=== PATIENT | female | born 1960 ===

== ENCOUNTER 2016-10-08 11:34 | Day surgery (SDC) | payer MEDICARE, OTHER ==
[2016-10-05 08:59] VITALS: BMI 29.0
[2016-10-08] MEDS ORDERED: Propofol 10 mg/ml Inj (20 ML) ONE ×2 (14:15→14:51)
[2016-10-08] MEDS ORDERED: Lidocaine 2% Inj (20ml) ONE (14:16)
[2016-10-08] MEDS ORDERED: Midazolam 2 MG/2 ML VIAL ONE ×2 (14:16→14:41)
[2016-10-08] MEDS ORDERED: Lidocaine 2% Jelly (30 ml) ONE (14:37)
[2016-10-08] MEDS ORDERED: Lactated Ringer's 1,000 ML IV SCH (15:12)
[2016-10-08 16:00] VITALS: TEMP 98.3; O2SAT 98
[2016-10-08 16:02] VITALS: PULSE 63; RESP 18
[2016-10-08 16:35] VITALS: BP 116/67
== END 2016-10-08 17:30 | disposition home or self-care (01) ==
LOC: ENDO 11:34
PROVIDERS: ATTEND Internal Medicine Gastroenterology
DX: C21.8 Malignant neoplasm of overlapping sites of rectum, anus and anal canal (principal); Z92.21 Personal history of antineoplastic chemotherapy; Z92.3 Personal history of irradiation
CPT/HCPCS: 43231; 45330; J2250; J2704; J3010; J7040; J7120

== ENCOUNTER 2017-04-06 08:35 | Emergency (ER) | payer MEDICAID, OTHER ==
[2017-04-06 08:35] VITALS: BMI 28.8
--- NOTE | 2017-04-06 09:35 | ED PDOC ---
Arrival/HPI - General Chief Complaint: GI Problem Time Seen by Provider: 04/06/17 09:10 Historian: Patient - History of Present Illness Narrative History of Present Illness (Text): 04/06/17 09:31 56yo female with PMHx of rectal CA s/p rectal resection present to ED for pain medication. States she still have pain on the surgical incision site that was done in December. states her PMD is currently on vacation and she came to ED for the refill of her oxycodone medication. she denies any current bleeding, fever, redness, swelling, nausea, vomiting, any other complaint. Past Medical History - Provider Review Nursing Documentation Reviewed: Yes - Infectious Disease Hx of Infectious Diseases: None - Tetanus Immunization Tetanus Immunization: Unknown - Reproductive Menopause: Yes - Past Medical History Past Medical History: No Previous - Cardiac Hx Pacemaker: No - Pulmonary Hx Asthma: Yes - Neurological Hx Neurological Disorder: No - HEENT Hx HEENT Disorder: No - Renal Hx Renal Disorder: No - Endocrine/Metabolic Hx Endocrine Disorders: Yes Hx Diabetes Mellitus Type 2: Yes - Hematological/Oncological Hx Blood Transfusions: No - Integumentary Hx Dermatological Disorder: No - Musculoskeletal/Rheumatological Hx Musculoskeletal Disorders: Yes - Gastrointestinal Hx Gastrointestinal Disorders: No - Genitourinary/Gynecological Hx Genitourinary Disorders: No - Psychiatric Hx Emotional Abuse: No Hx Physical Abuse: No Hx Substance Use: No - Past Surgical History Past Surgical History: No Previous - Surgical History Other/Comment: colon surgery, colon ca - Anesthesia Hx Anesthesia Reactions: No Hx Malignant Hyperthermia: No - Suicidal Assessment Feels Threatened In Home Enviroment: No Family/Social History - Physician Review Nursing Documentation Reviewed: Yes Family/Social History: Unknown Family HX Smoking Status: Never Smoked Hx Alcohol Use: No Hx Substance Use: No Hx Substance Use Treatment: No Allergies/Home Meds Allergies/Adverse Reactions: Allergies No Known Allergies Allergy (Verified 10/19/15 16:35) Home Medications: Home Meds Medication Instructions Recorded Confirmed oxyCODONE/Acetaminophen [Percocet 1 tab PO Q6 PRN 10/05/16 04/06/17 5/325 mg Tab] Review of Systems - Physician Review All systems were reviewed & negative as marked: Yes - Review of Systems Constitutional: Normal Eyes: Normal ENT: Normal Respiratory: Normal Cardiovascular: Normal Gastrointestinal: Normal, Other (Rectal pain) Genitourinary Female: Normal Musculoskeletal: Normal Skin: Normal Neurological: Normal Endocrine: Normal Hemo/Lymphatic: Normal Psychiatric: Normal Physical Exam Vital Signs Reviewed: Yes Vital Signs Temp Pulse Resp BP Pulse Ox 04/06/17 10:09 98.0 F 78 17 141/66 98 04/06/17 08:53 98.1 F 88 16 124/76 99 Temperature: Afebrile Blood Pressure: Normal Pulse: Regular Respiratory Rate: Normal Appearance: Positive for: Well-Appearing, Non-Toxic, Comfortable Pain Distress: None Mental Status: Positive for: Alert and Oriented X 3 - Systems Exam Head: Present: Atraumatic, Normocephalic Pupils: Present: PERRL Extroacular Muscles: Present: EOMI Conjunctiva: Present: Normal Mouth: Present: Moist Mucous Membranes Neck: Present: Normal Range of Motion Respiratory/Chest: Present: Clear to Auscultation, Good Air Exchange. No: Respiratory Distress, Accessory Muscle Use Cardiovascular: Present: Regular Rate and Rhythm, Normal S1, S2. No: Murmurs Abdomen: Present: Normal Bowel Sounds. No: Tenderness, Distention, Peritoneal Signs Back: Present: Normal Inspection Upper Extremity: Present: Normal Inspection. No: Cyanosis, Edema Lower Extremity: Present: Normal Inspection. No: Edema Neurological: Present: GCS=15, CN II-XII Intact, Speech Normal Skin: Present: Warm, Dry, Normal Color. No: Rashes Psychiatric: Present: Alert, Oriented x 3, Normal Insight, Normal Concentration Medical Decision Making ED Course and Treatment: 04/06/17 19:29 PT was not in any distress in ED. she was noted to be ambulatory, drinking tea in ED. She was DC home with #10tabs of Percocet. Advised strongly to f/u with her PMD for rx of her opiates. - Medication Orders Current Medication Orders: Discontinued Medications Oxycodone/Acetaminophen (Percocet 5/325 Mg Tab) 1 tab PO STAT STA Stop: 04/06/17 10:19 Last Admin: 04/06/17 10:31 Dose: 1 tab MAR Pain Assessment Document 04/06/17 10:31 HI (Rec: 04/06/17 10:31 KS [id number]) Pain Reassessment Is this a pain reassessment? No Presence of Pain Presence of Pain Yes Disposition/Present on Arrival - Present on Arrival Any Indicators Present on Arrival: No History of DVT/PE: No History of Uncontrolled Diabetes: No Urinary Catheter: No History of Decub. Ulcer: No History Surgical Site Infection Following: None - Disposition Have Diagnosis and Disposition been Completed?: Yes Diagnosis: Rectal pain Disposition: HOME/ ROUTINE Disposition Time: 09:35 Patient Plan: Discharge Condition: STABLE Discharge Instructions (ExitCare): Rectal Pain (ED) Additional Instructions: Follow up with your Doctor Return to ED for any new symptoms Prescriptions: oxyCODONE/Acetaminophen [Percocet 5/325 mg Tab] 1 ea PO Q6 #10 tab Referrals: Red Neri MD [Primary Care Provider] - Follow up with primary Forms: [employer] (Vietnamese)
[2017-04-06 10:10] VITALS: BP 141/66; PULSE 78; RESP 17; TEMP 98; O2SAT 98
[2017-04-06] MEDS ORDERED: Oxycodone/Acetaminophen 5/325 mg Tab PO STA (10:18)
== END 2017-04-06 10:51 | disposition home or self-care (01) ==
LOC: ED 08:35
DX: K62.89 Other specified diseases of anus and rectum (principal); E11.9 Type 2 diabetes mellitus without complications

== ENCOUNTER 2018-04-19 06:40 | Day surgery (SDC) | payer OTHER ==
[2018-04-18 10:58] VITALS: BMI 27.8
[2018-04-19 07:49] LABS: BLOOD UREA NITROGEN 13 mg/dL (7-21); CALCIUM 8.7 mg/dL (8.4-10.5); GFR NON-AFRICAN AMERICAN > 60
[2018-04-19 07:54] LABS: BASO # 0.03 K/mm3 (0.0-2.0); BASO % 0.5 % (0.0-3.0); EOS # 0.1 (0.0-0.7); EOS % 2.1 % (1.5-5.0); GRAN # 3.93 (1.4-6.5); GRAN % 67.4 % (50.0-68.0); HEMOGLOBIN 12.2 g/dL (12.0-16.0); LYMPH # 1.4 (1.2-3.4); LYMPH % 24.2 % (22.0-35.0); MEAN CORPUSCULAR HGB CONC 32.6 g/dl (31.0-37.0); MEAN PLATELET VOLUME 10.6 fl (7.0-11.0); MONO # 0.3 (0.1-0.6); MONO % 5.8 % (1.0-6.0); RBC 4.35 10^6/uL (3.5-6.1); RED CELL DISTRIBUTION WIDTH 13.5 % (11.5-14.5); WHITE BLOOD COUNT 5.8 10^3/uL (4.5-11.0)
[2018-04-19 08:04] LABS: PARTIAL THROMBOPLASTIN TIME 26.3 Seconds (25.1-36.5); PROTHROMBIN TIME 11.5 SECONDS (9.4-12.5)
[2018-04-19] MEDS ORDERED: Midazolam 2 MG/2 ML VIAL ONE ×2 (09:26→09:46)
[2018-04-19] MEDS ORDERED: Lidocaine 1% Inj (20ml) ONE (09:27)
[2018-04-19] MEDS ORDERED: Midazolam 2 MG/2 ML VIAL IVP ONE (10:00)
[2018-04-19] MEDS ORDERED: Oxycodone/Acetaminophen 5/325 mg Tab PO PRN (10:13)
[2018-04-19] MEDS ORDERED: Sodium Chloride 0.45% 1,000 ML IV SCH (10:15)
[2018-04-19 11:25] VITALS: TEMP 98
[2018-04-19 12:35] VITALS: BP 118/71; PULSE 73; RESP 20; O2SAT 96
--- NOTE | 2018-04-19 13:09 | RAD ---
Date of service: 04/19/2018 HISTORY: rt lung bx COMPARISON: 10/05/2017 FINDINGS: LUNGS: Limited portable examination. There is redemonstration of a nodule in the right upper lobe. The lungs are well inflated. PLEURA: No pleural effusions or pneumothorax. CARDIOVASCULAR: Mild cardiomegaly. No aortic atherosclerotic calcification present. OSSEOUS STRUCTURES: Within normal limits for the patient's age. VISUALIZED UPPER ABDOMEN: Normal. OTHER FINDINGS: None. IMPRESSION: Status post lung biopsy, limited portable examination, no definite evidence for pneumothorax.
--- NOTE | 2018-04-19 17:55 | CT ---
PROCEDURE: CT guided right upper lobe lung biopsy HISTORY: Solitary 2.5 cm right upper lobe lung nodule. History rectal CA. Evaluate for lung carcinoma versus metastatic disease PHYSICIAN(S): Kaleb Dsouza MD. TECHNIQUE: The relative risks and indications of the procedure were explained to the patient and consent obtained. The patient was placed prone on the CT scanner and preliminary images through the lung apices obtained. Conscious sedation and monitoring were provided throughout the procedure by a nurse. There is a 2.5 cm irregular nodule at the right apex.. A right posterior approach was selected and the area prepped and draped in the usual sterile fashion. 1% Xylocaine was used to anesthetize the skin and soft tissues. A 19 gauge guiding needle was advanced into the 2.5 cm right upper lobe nodule.. Its position was confirmed with CT. Using coaxial technique, multiple core biopsies were obtained. The postprocedure images show no evidence of large pneumothorax or significant hemorrhage.. IMPRESSION: 1. CT-guided right upper lobe lung biopsy as described above.
== END 2018-04-19 13:20 | disposition home or self-care (01) ==
LOC: SDS 06:40
PROVIDERS: ATTEND Radiology Vascular & Interventional Radiology
DX: C34.11 Malignant neoplasm of upper lobe, right bronchus or lung (principal); Z85.048 Personal history of other malignant neoplasm of rectum, rectosigmoid junction, and anus
CPT/HCPCS: 32405; 36415; 71045; 77012; 80048; 85025; 85610; 85730; 88305; J2250; J2405; J3010; J7030